=== PATIENT | male | born 1940 | race Caucasian/White ===

== ENCOUNTER 2019-08-07 20:42 | Inpatient (IN) | payer BC ==
[~2019-08-07] VITALS: Ht 165.1 cm; Wt 77.4 kg
[~2019-08-07 20:42] MED LIST: ACULAR OPHTHALMI5 ML OS; GLUCOPHAGE500 MG/TAB PO; LIPITOR 80MG80 MG PO; NORMODYNE100 MG PO; OCUFLOX OPHTH DR5 ML OS; PRED FORTE 1 ML1 ML OS
[2019-08-07] MEDS ORDERED: NORVASC 10MG10 MG PO (21:00)
[2019-08-07] MEDS ORDERED: GLUCOTROL 5M5 MG/TAB PO (21:00)
[2019-08-07 21:25] VITALS: BP 134/75; PULSE 74
[2019-08-07 21:26] LABS: BASO # 0.1 (0.0-0.2); BASO % 0.7 % (0.0-2.0); EOS # 0.2 (0.0-0.7); EOS % 2.5 % (0-4.0); GRAN # 5.7 (1.4-6.5); GRAN % 75.5 % (42.2-75.2); HEMOGLOBIN 10.1 g/dl (13.5-18.0); LYMPH # 1.1 (1.2-3.4); LYMPH % 14.5 % (20.0-51.0); MEAN CELL VOLUME 92 fl (80.0-100.0); MEAN CORPUSCULAR HEMOGLOBIN 31 pg (27.0-31.0); MEAN CORPUSCULAR HGB CONC 33 g/dl (33.0-37.0); MEAN PLATELET VOLUME 9.1 fl (7.4-10.4); MONO # 0.5 (0.1-0.6); MONO % 6.4 % (1.7-9.3); PLATELET COUNT 205 K/mm3 (130-400)
[2019-08-07 21:35] LABS: ALBUMIN 4.2 gm/dL (3.5-5.0); BILIRUBIN,TOTAL 0.4 mg/dL (0.0-1.0); CALCIUM 9.5 mg/dL (8.4-10.2); CREATININE, serum 1.4 (0.66-1.25); TOTAL PROTEIN 6.8 gm/dL (6.4-8.2)
[2019-08-07 21:37] LABS: HEMATOCRIT 30.2 % (42.0-52.0)
[2019-08-08] VITALS (542 sets, daily range): BP systolic 117–179; BP diastolic 52–78; PULSE 63–114; TEMP 97.3–99.8; O2SAT 78–100
[2019-08-08 06:11] LABS: MEAN CELL VOLUME 92 fl (80.0-100.0); MEAN CORPUSCULAR HGB CONC 34 g/dl (33.0-37.0); MEAN PLATELET VOLUME 9.2 fl (7.4-10.4); PLATELET COUNT 158 K/mm3 (130-400); RED BLOOD COUNT 2.11 M/mm3 (4.20-5.60); REDCELL DISTRIBUTION WIDTH-CV 12.3 % (11.5-14.5)
[2019-08-08 06:34] LABS: ALBUMIN 2.8 gm/dL (3.5-5.0); BILIRUBIN,TOTAL 0.3 mg/dL (0.0-1.0); CALCIUM 7.9 mg/dL (8.4-10.2); CREATININE, serum 1.17 (0.66-1.25); POTASSIUM 4.5 mmol/L (3.4-5.0); TOTAL PROTEIN 4.9 gm/dL (6.4-8.2)
[2019-08-08 07:01] LABS: HEMATOCRIT 19.4 % (42.0-52.0); HEMOGLOBIN 6.5 g/dl (13.5-18.0); MEAN CORPUSCULAR HEMOGLOBIN 31 pg (27.0-31.0)
[2019-08-08 07:45] LABS: BAND 1 % (0-10); BASOPHIL 1 % (0-2); EOSINOPHIL 3 % (0-4); LYMPHOCYTE 20 % (20.0-51.0); NEUTROPHILS 73 % (42.0-75.2); PLATELET ESTIMATE NORMAL (NORMAL); SCHISTOCYTES 1+
[2019-08-08 11:18] LABS: HEMATOCRIT 20.4 % (42.0-52.0)
[2019-08-08 17:42] LABS: HEMOGLOBIN 5.1 g/dl (13.5-18.0)
[2019-08-08 17:43] LABS: HEMATOCRIT 14.8 % (42.0-52.0)
[2019-08-08 18:59] LABS: INR 1.1 (0.8-3.0); PROTHROMBIN TIME 12.4 SECONDS (9.7-12.8)
[2019-08-08 23:26] LABS: HEMOGLOBIN 7.2 g/dl (13.5-18.0)
[2019-08-09] VITALS (463 sets, daily range): BP systolic 120–173; BP diastolic 49–79; PULSE 68–120; TEMP 98.5–99; O2SAT 79–100
[2019-08-09 05:56] LABS: BASO % 0.1 % (0.0-2.0); GRAN # 5.4 (1.4-6.5); LYMPH # 0.9 (1.2-3.4); LYMPH % 13.9 % (20.0-51.0); MEAN CELL VOLUME 89 fl (80.0-100.0); MEAN CORPUSCULAR HGB CONC 35 g/dl (33.0-37.0); MEAN PLATELET VOLUME 9.2 fl (7.4-10.4); MONO # 0.4 (0.1-0.6); MONO % 6.4 % (1.7-9.3); PLATELET COUNT 113 K/mm3 (130-400); RED BLOOD COUNT 1.83 M/mm3 (4.20-5.60); REDCELL DISTRIBUTION WIDTH-CV 13.4 % (11.5-14.5)
[2019-08-09 05:58] LABS: HEMATOCRIT 16.3 % (42.0-52.0); HEMOGLOBIN 5.7 g/dl (13.5-18.0); MEAN CORPUSCULAR HEMOGLOBIN 31 pg (27.0-31.0)
[2019-08-09 06:17] LABS: CALCIUM 7.5 mg/dL (8.4-10.2); CREATININE, serum 1.15 (0.66-1.25); POTASSIUM 4.2 mmol/L (3.4-5.0)
[2019-08-09 10:49] LABS: HEMATOCRIT 19.2 % (42.0-52.0); HEMOGLOBIN 6.7 g/dl (13.5-18.0)
[2019-08-09 16:58] LABS: HEMATOCRIT 20.9 % (42.0-52.0); HEMOGLOBIN 7.2 g/dl (13.5-18.0)
[2019-08-10] VITALS (13 sets, daily range): BP systolic 116–162; BP diastolic 35–83; PULSE 69–81; TEMP 98.4–99.3
[2019-08-10 06:20] LABS: MEAN CELL VOLUME 92 fl (80.0-100.0); MEAN CORPUSCULAR HGB CONC 34 g/dl (33.0-37.0); MEAN PLATELET VOLUME 9.5 fl (7.4-10.4); PLATELET COUNT 102 K/mm3 (130-400); RED BLOOD COUNT 2.11 M/mm3 (4.20-5.60); REDCELL DISTRIBUTION WIDTH-CV 13.9 % (11.5-14.5)
[2019-08-10 06:31] LABS: CALCIUM 8.1 mg/dL (8.4-10.2); CREATININE, serum 1.15 (0.66-1.25); POTASSIUM 3.9 mmol/L (3.4-5.0)
[2019-08-10 06:34] LABS: HEMATOCRIT 19.4 % (42.0-52.0); HEMOGLOBIN 6.6 g/dl (13.5-18.0); MEAN CORPUSCULAR HEMOGLOBIN 31 pg (27.0-31.0)
[2019-08-10 07:11] LABS: BAND 1 % (0-10); EOSINOPHIL 2 % (0-4); LYMPHOCYTE 11 % (20.0-51.0); NEUTROPHILS 82 % (42.0-75.2)
[2019-08-10 07:12] LABS: ANISOCYTOSIS 1+; HYPOCHROMIA 2+; POLYCHROMASIA 1+
[2019-08-10 22:13] LABS: HEMATOCRIT 20.7 % (42.0-52.0); HEMOGLOBIN 7.1 g/dl (13.5-18.0)
[2019-08-11 03:21] VITALS: BP 141/50; PULSE 66; TEMP 98.4
[2019-08-11 06:18] LABS: BASO % 0.4 % (0.0-2.0); EOS # 0.2 (0.0-0.7); EOS % 3.1 % (0-4.0); GRAN # 3.6 (1.4-6.5); GRAN % 68.4 % (42.2-75.2); LYMPH # 0.9 (1.2-3.4); LYMPH % 17.7 % (20.0-51.0); MEAN CELL VOLUME 90 fl (80.0-100.0); MEAN CORPUSCULAR HGB CONC 35 g/dl (33.0-37.0); MEAN PLATELET VOLUME 9.5 fl (7.4-10.4); MONO # 0.5 (0.1-0.6); MONO % 9.4 % (1.7-9.3); PLATELET COUNT 103 K/mm3 (130-400); RED BLOOD COUNT 2.32 M/mm3 (4.20-5.60); REDCELL DISTRIBUTION WIDTH-CV 14.6 % (11.5-14.5)
[2019-08-11 06:28] LABS: HEMATOCRIT 20.8 % (42.0-52.0); HEMOGLOBIN 7.2 g/dl (13.5-18.0); MEAN CORPUSCULAR HEMOGLOBIN 31 pg (27.0-31.0)
[2019-08-11 06:45] LABS: CALCIUM 8.4 mg/dL (8.4-10.2); CREATININE, serum 1.31 (0.66-1.25)
[2019-08-11 07:29] VITALS: BP 140/57; PULSE 64; TEMP 98.9
[2019-08-11] MEDS ORDERED: FERROUS SU325 MG/TAB PO (09:51)
== END 2019-08-11 12:00 | disposition home or self-care (01) | DRG 920 ==
LOC: COL.ER 20:42 → MEDICAL 22:57 → IMCU 22:57 → ICU 22:57 → IMCU 08-08 12:43 → MEDICAL 08-09 18:28
PROVIDERS: Emergency Medicine; Hospitalist; Internal Medicine Gastroenterology; Physician Assistant; ADMIT Internal Medicine
PROC: 0W3P8ZZ Control Bleeding in Gastrointestinal Tract, Via Natural or Artificial Opening Endoscopic (ICD-10-PCS; principal; 2019-08-09 07:00)
DX: K91.840 Postprocedural hemorrhage of a digestive system organ or structure following a digestive system procedure (principal); D62 Acute posthemorrhagic anemia; Y83.8 Other surgical procedures as the cause of abnormal reaction of the patient, or of later complication, without mention of misadventure at the time of the procedure; I10 Essential (primary) hypertension; E78.5 Hyperlipidemia, unspecified; E11.9 Type 2 diabetes mellitus without complications; Z96.653 Presence of artificial knee joint, bilateral; K76.9 Liver disease, unspecified; Z79.84 Long term (current) use of oral hypoglycemic drugs; Z87.891 Personal history of nicotine dependence
CPT/HCPCS: 99222-AI; 99232-AI; 99239; C9113; J2405; J2704; J2765; J3010; J7030; J7120; P9016